=== PATIENT | female | born 1995 | race Caucasian/White ===

== ENCOUNTER 2017-05-05 16:21 | Emergency (ER) | payer SELFPAY ==
[~2017-05-05] VITALS: Ht 165.1 cm; Wt 77.6 kg
[2017-05-05 16:23] VITALS: BP 128/74; TEMP 98.8
[2017-05-05 18:10] VITALS: PULSE 97
== END 2017-05-05 18:10 | disposition home or self-care (01) ==
LOC: COL.ER 16:21
DX: J02.9 Acute pharyngitis, unspecified (principal); R59.0 Localized enlarged lymph nodes
CPT/HCPCS: J8540